=== PATIENT | male | born 1945 | race Caucasian/White ===

== ENCOUNTER → 2016-09-12 15:13 | Outpatient (CLI) | payer MEDICARE, BC ==
[2013-02-13 10:05] VITALS: BMI 31.1
[~2016-09-12 15:13] MED LIST: ACETAMINOPHEN500 M1 PO; BAYER CHEWABLE81 MG PO; CENTRUM SILVER1 TA2 PO; CO Q-10100 MG PO; CRESTOR10 MG PO; EFFIENT10 MG PO; FISH OIL 1,0001 CA1 PO; FLUTICASONE PRO16 GM NS; IMDUR60 MG PO; NITROQUICK0.4 MG SL; PRILOSEC20 MG PO; TRIGLIDE160 MG PO
== END | disposition home or self-care (01) ==
LOC: D.US 15:13
DX: I65.23 Occlusion and stenosis of bilateral carotid arteries (principal)

== ENCOUNTER → 2016-10-03 13:00 | Outpatient (CLI) | payer MEDICARE, BC ==
[2013-02-13 10:05] VITALS: BMI 31.1
[2016-10-04 10:15] LABS: IMMUNOGLOBULIN E 8 IU/mL (0-100)
== END | disposition home or self-care (01) ==
LOC: D.RT 13:00
PROVIDERS: Internal Medicine Pulmonary Disease
DX: J44.9 Chronic obstructive pulmonary disease, unspecified (principal)

== ENCOUNTER → 2017-04-04 07:44 | Outpatient (CLI) | payer MEDICARE, BC ==
[2013-02-13 10:05] VITALS: BMI 31.1
== END | disposition home or self-care (01) ==
LOC: D.US 07:44
DX: N28.1 Cyst of kidney, acquired (principal)

== ENCOUNTER → 2017-04-25 19:36 | Outpatient (CLI) | payer MEDICARE, BC ==
[2013-02-13 10:05] VITALS: BMI 31.1
== END | disposition home or self-care (01) ==
LOC: D.SLEEP 04-20 08:00
DX: G47.36 Sleep related hypoventilation in conditions classified elsewhere (principal); G47.00 Insomnia, unspecified; J44.9 Chronic obstructive pulmonary disease, unspecified

== ENCOUNTER → 2017-05-23 16:37 | Outpatient (CLI) | payer MEDICARE, BC ==
[2013-02-13 10:05] VITALS: BMI 31.1
[~2017-05-23 16:37] MED LIST changes: +CARDIZEM60 MG PO; -IMDUR60 MG PO; +ISOSORBIDE MONO60 M1 PO; +OMEPRAZOLE20 M1 PO; +PROAIR HFA8.5 GM INH; +SINGULAIR10 MG PO; +STIOLTO RESPIMAT4 GM INH
[2017-05-23 18:19] LABS: CHOL - HDL RATIO 3.6 ratio (2.3-4.9); LDL-HDL RATIO 2.4 ratio (1.5-3.5)
[2017-09-17 03:49] VITALS: BMI 32.9
== END | disposition home or self-care (01) ==
LOC: D.LABREF 16:37
PROVIDERS: Internal Medicine Interventional Cardiology
DX: E78.5 Hyperlipidemia, unspecified (principal)

== ENCOUNTER → 2017-05-23 19:29 | Outpatient (CLI) | payer MEDICARE, BC ==
[2013-02-13 10:05] VITALS: BMI 31.1
[2017-09-17 03:49] VITALS: BMI 32.9
== END | disposition home or self-care (01) ==
LOC: D.SLEEP 08:00
DX: G47.36 Sleep related hypoventilation in conditions classified elsewhere (principal); G47.00 Insomnia, unspecified; G47.33 Obstructive sleep apnea (adult) (pediatric); E78.5 Hyperlipidemia, unspecified

== ENCOUNTER 2017-09-16 20:16 | Observation (INO) | payer MEDICARE, BC ==
[~2017-09-16] VITALS: Ht 170.2 cm; Wt 90.7 kg
[2017-09-16] VITALS: BP 151/75
--- NOTE | ~2017-09-16 | OP ---
PATIENT NAME: NASRIN OSULLIVAN MEDICAL RECORD: [id number] :45 LOCATION:D. D.2126 ADMISSION DATE:09/16/17 SURGEON: SARAHI CROFT MD DATE OF OPERATION: 09/17/2017 PROCEDURE: Left heart catheterization, selective coronary angiography, right radial approach. CATHETERS: Albion catheter, radial sheath. The procedure was well tolerated. The patient returned to the joseph. Sheath removed. TR band was placed. FINDINGS: Left ventriculography in the 30-degree ERWIN view: Normal wall motion. Normal systolic function. CORONARY ANATOMY. LEFT MAIN: Left main is free of disease. LAD: The area of previous stenting is widely patent with no evidence of restenosis. No progression of tulalip disease. CIRCUMFLEX: Free of disease. RIGHT CORONARY ARTERY: Totally occluded. Fills extremely well via [id number] collaterals. IMPRESSION: Totally occluded right coronary with excellent [id number] collaterals. Preserved LV systolic function. No progression of tulalip disease. TRANSINT:[id number] Voice Confirmation ID: [id number] DOCUMENT ID: [id number] SARAHI CROFT MD CC: [id number] DICTATION DATE: 09/17/17 1118 PANEL MAKER: 09/17/17 1431 ADM IN [facility] [address] [id number]
--- NOTE | ~2017-09-16 | HEMODYNAMI ---
PATIENT:NASRIN OSULLIVAN MEDICAL RECORD: [id number] : 45 LOCATION:[address] ADMISSION DATE: 09/16/17 Generatedon:09/17/201711:18 Patient name: NASRIN OSULLIVAN Patient #: [id number] SSN: : 1945 Date of study: 09/17/2017 Page: Of Hemodynamic Procedure Report Patient Data Patient Demographics Procedure consent was obtained First Name: NASRIN Gender: Male Last Name: SHI : 1945 [facility] Initial: L Age: 72 year(s) Patient #: [id number] Race: Unknown Additional ID: [id number] Contact details [address]: [address] [place] [address] State: [place] City: [place] Zip code: [address] Past Medical History Allergies Allergen Reaction Date Comments Reported Other allergy 09/17/2017 Morphine Admission Admission Data Admission Date: 09/16/2017 Admission Time: 23:42 Room #: 2126 Lab Results Lab Result Date: 09/17/2017 Lab Result Time: 0:00 Biochemistry Name Units Result Min Max BUN mg/dl 27 --(----)-* 7 18 Creatinine mg/dl 1.3 --(---*)-- 0.6 1.3 CBC Name Units Result Min Max Hemoglobin g/dl 12.3 *-(----)-- 13.5 17.5 Procedure Procedure Types Cath Procedure Diagnostic Procedure [facility] w/Coronaries Procedure Description Procedure Date Procedure Date: 09/17/2017 Procedure Start Time: 11:09 Procedure End Time: 11:17 Procedure Staff Name Function Oseas Ramírez RT Scrub Courtney Aaron RT Monitor Ade Walter RT Monitor oJnah Marinelli MD Performing Physician Vasile España RN Nurse Procedure Data Cath Procedure Fluoroscopy Diagnostic fluoroscopy Total fluoroscopy Time: 1 time: 1 min min Diagnostic fluoroscopy Total fluoroscopy dose: 444 dose: 444 mGy mGy Contrast Material Contrast Material Type Amount (ml) Isovue 300 48 Entry Location Entry Primary Successful Side Size Upsize Upsize Entry Closure Clark ccessful Closure Location (Fr) 1 (Fr) 2 (Fr) Remarks Device Remarks Radial Right 5 Fr Mechanical artery Compression Estimated blood loss: 10 ml Diagnostic catheters Device Type Used For End Catheter Placement DIAGNOSTIC Centerview 110cm 5 Procedure Fr catheter ([id number]) Procedure Complications No complications Procedure Medications Medication Administration Route Dosage Oxygen NC 2 l/min Heparin Flush Bag added to field 2 bags (1000units/500ml NS) 0.9% NaCl I.V. 100 ml/hr Radial Cocktail added to field 1 syringe (Verapomil 2mg/Nitro 400mcg/Heparin 1500units) Fentanyl I.V. 50 mcg Versed I.V. 1 mg Radial Cocktail I.A. 1 syringe (Verapomil 2mg/Nitro 400mcg/Heparin 1500units) Fentanyl I.V. 50 mcg Versed I.V. 1 mg Hemodynamics Rest HGB: 12.3 (g/dl) Heart Rate: 70 (bpm) Pressure Samples Time Site Value (mmHg) Purpose Heart Use Rate(bpm) 11:11 LV 95/7,11 Snapshot 105 11:11 AO 96/60(77) Pullback 84 11:11 LV 90/9,13 Pullback 84 Gradients Valve Time Site 1 Site 2 Mean SEP/DFP Peak To Heart Use (mmHg) (sec/min) Peak Rate (mmHg) (bpm) Aortic 11:11 LV AO 0 84 90/9,13 96/60(77) Calculations Valve P-P Mean Valve Index Valve Source Name Gradient Area Flow (cm2) Aortic 0 0 Snapshots Pre Cath Intra NCS Post Cath Vital Signs Time Heart Resp SPO2 etCO2 NIBP (mmHg) Rhythm Pain Sedation Rate (ipm) (%) (mmHg) Status Level (bpm) 10:52:08 73 16 0 158/94(129) NSR 0 (11) 10(A) , No pain 10:56:51 73 17 100 0 143/69(108) NSR 0 (11) 10(A) , No pain 11:01:29 77 15 93 0 127/70(97) NSR 0 (11) 10(A) , No pain 11:06:06 87 16 95 0 120/72(95) NSR 0 (11) 10(A) , No pain 11:10:44 84 16 94 0 115/66(82) NSR 0 (11) 9(A) , No pain 11:15:23 90 17 92 0 119/73(96) NSR 0 (11) 9(A) , No pain Medications Time Medication Route Dose Verified Delivered Reason Notes Effectiveness by by 10:56:46 Oxygen NC 2 l/min Jonah Burnette Per [facility]. Brenden ledbetter MD 10:56:55 Heparin Flush added 2 bags Jonah Burnette used for Bag to St. Brenden España RN procedure (1000units/500ml field APPIAH NS) 10:57:03 0.9% NaCl I.V. 100 Jonah Burnette Per ml/hr [facility]. Brenden ledbetter MD 10:57:16 Radial Cocktail added 1 Jonah Vasile used for (Verapomil to syringe [facility]. Brenden España learning consultant 2mg/Nitro field APPIAH 400mcg/Heparin 1500units) 11:08:51 Fentanyl I.V. 50 mcg Jonah Burnette for sedation St. Brenden España RN, MD 11:08:57 Versed I.V. 1 mg Jonah Burnette for sedation St. Brenden España RN, MD 11:10:09 Radial Cocktail I.A. 1 Jonah Jonah for (Verapomil syringe [facility] Wilcox vasodilation 2mg/Otto APPIAH MD 400mcg/Heparin 1500units) 11:11:07 Fentanyl I.V. 50 mcg Jonah Lopezy for sedation [facility]. Brenden España RN, MD 11:11:15 Versed I.V. 1 mg Jonah Lopezy for sedation St. Brenden España RN, MD Procedure Log Time Note 10:28:51 Oseas SOLOMON(R) sent for patient. Start room use. 10:33:02 Time tracking: Regular hours 10:33:06 Plan of Care:Hemodynamics will remain stable., Cardiac rhythm will remain stable., Comfort level will be maintained., Respiratory function will remain adequate., Patient/ family verbilizes understanding of procedure., Procedure tolerated without complication., Recovers from procedure without complications.. 10:39:17 Patient received from Med II to CCL 1 Alert and oriented. Tansferred to table in Supine position. 10:39:18 Warm blankets applied, and fatmata hugger turned on for patient comfort. 10:39:19 Correct patient and procedure confirmed by team. 10:39:20 Signed procedure consent form obtained from patient. 10:42:03 H&P Date Dictated: 09/16/2017 Within 30 days and on chart.. 10:42:09 Family in patients room. 10:42:11 Patient NPO since Midnight. 10:42:24 Patient allergic to Other allergyMorphine 10:42:27 Is the patient allergic to Iodine/contrast media? No. 10:42:29 Was the patient premedicated? Yes 10:42:34 Is patient on blood thinner?N/A 10:42:38 Patient diabetic? No. 10:42:43 Snore? Yes 10:42:45 Sleep apnea? No 10:42:56 Airway obstruction? Yes Emphazema 10:43:03 Dentures? No ? 10:43:11 Patient pain scale 0/10 ?. 10:43:23 IV patent on arrival in left hand with 0.9% NaCl at KVO. 10:43:37 IV started by Vasile España RN inleft forearm with a 20 gauge IV catheter with 0.9% NaCl at KVO. 10:43:53 IV right forearm D/C'd due to need to relocate for procedure.. 10:44:18 Lab Result : BUN 27 mg/dl 10:44:18 Lab Result : Creatinine 1.3 mg/dl 10:44:18 Lab Result : Hemoglobin 12.3 g/dl 10:44:23 Lab results completed and on chart. 10:44:27 Right Radial & Right Groin area was prepped with chlora-prep and draped in sterile fashion 10:44:28 Alarms reviewed by R. N. 10:44:29 Sharps counted by scrub and verified by R.N. 10:44:30 Physician paged 10:47:31 ECG and BP/O2 sat monitors applied to patient. 10:49:43 Use device set Radial Dx or PCI 10:49:45 Tegaderm 4 x 4 (1626W) opened to sterile field. 10:49:46 ACIST Manifold (83877) opened to sterile field. 10:49:47 ACIST Hand Control (57007) opened to sterile field. 10:49:48 ACIST Syringe (57143) opened to sterile field. 10:49:48 Medline Cath Pack ([id number]) opened to sterile field. 10:49:49 Bag Decanter (2002S) opened to sterile field. 10:49:49 SHEATH 6FR Slender ([id number]) opened to sterile field. 10:49:50 DIAGNOSTIC WIRE .035 260cm J wire (485573) opened to sterile field. 10:49:50 MBrace Wrist Support ([id number]) opened to sterile field. 10:51:15 Vital chart was started 10:51:16 Baseline sample Acquired. 10:51:20 Rhythm: sinus rhythm 10:51:22 Full Disclosure recording started 10:51:24 Pre-procedure instructions explained to patient. 10:51:25 Pre-op teaching completed and patient verbalized understanding. 10:52:32 IV CATHETER 20g opened to sterile field. 10:56:46 Oxygen 2 l/min NC was administered by Vasile España RN; Per physician; 10:56:55 Heparin Flush Bag (1000units/500ml NS) 2 bags added to field was administered by Vasile España RN; used for procedure; 10:57:03 0.9% NaCl 100 ml/hr I.V. was administered by Vasile España RN; Per physician; 10:57:16 Radial Cocktail (Verapomil 2mg/Nitro 400mcg/Heparin 1500units) 1 syringe added to field was administered by Vasile España RN; used for procedure; 11:01:17 Zero performed for pressure channel P1 11:05:51 Physician arrived 11:05:54 --------ALL STOP TIME OUT------ 11:05:56 Final Timeout: patient, procedure, and site verified with staff and physician. All members of the team are in agreement. 11:05:59 Right Radial & Right Groin site verified by team. 11:06:03 Physical assessment completed. ASA score P 2 - A patient with mild systemic disease as per Jonah Marinelli MD. 11:06:08 Sedation plan: IV Moderate Sedation Medication:Versed, Fentanyl 11:08:28 Procedure started. 11:08:51 Fentanyl 50 mcg I.V. was administered by Vasile España RN; for sedation; ::57 Versed 1 mg I.V. was administered by Vasile España RN; for sedation; 11:09:05 Local anesthetic to right radial artery with Lidocaine 2% by Jonah Marinelli MD.INITIAL ACCESS ONLY 11:09:21 A 5 Fr sheath was inserted into the Right Radial artery 11:10:09 Radial Cocktail (Verapomil 2mg/Nitro 400mcg/Heparin 1500units) 1 syringe I.A. was administered by Jonah Marinelli MD; for vasodilation; 11:10:23 A DIAGNOSTIC Centerview 110cm 5 Fr catheter ([id number]) was advanced over the wire and used for Procedure. 11:10:42 LV angiography performed. 11:11:07 Fentanyl 50 mcg I.V. was administered by Vasile España RN; for sedation; 11:11:15 Versed 1 mg I.V. was administered by Vasile España RN; for sedation; 11:11:33 LV gram done using ERWIN 11:11:41 EF : 55 % 11:11:59 LCA angiography performed. 11:14:37 Right Coronary occluded. Visualized with Left Coronary 11:14:54 TR BAND Standard ([id number]) opened to sterile field. 11:15:12 Catheter removed. 11:15:33 Sheath removed intact; hemostasis achieved with Mechanical Compression to the Right Radial artery. 11:15:35 Procedure ended.(Physican Out) 11:15:46 Fluoroscopy time 01.00 minutes. 11:15:51 Fluoroscopy dose: 444 mGy 11:15:51 Flurop Dose total: 444 11:15:56 Contrast amount:Isovue 300 48ml. 11:15:58 Sharps counted by scrub and verified by R.N. 11:16:07 TR band inflated with 10cc of air. 11:16:18 Post right radial artery:stable 11:16:21 Post Procedure Pulses reassessed and unchanged 11:16:45 Post-procedure physical assessment completed. ASA score P 2 - A patient with mild systemic disease as per Jonah Marinelli MD. 11:16:50 Post procedure rhythm: unchanged. 11:16:53 Estimated blood loss: 10 ml 11:16:56 Post procedure instruction explained to patient.Patient verbalizes understanding. 11:17:06 Procedure and supply charges have been captured, reviewed, submitted and are correct. 11:17:28 Procedure Complication : No complications 11:17:31 Vital chart was stopped 11:17:32 See physician's report for complete and final results. 11:17:34 Report given to Pre/Post Procedure Room. 11:17:40 Patient transfered to [facility] with Bed. 11:17:43 Procedure ended. 11:17:43 Full Disclosure recording stopped 11:17:46 End room use (Document Last) Device Usage Item Name Manufacture Quantity Catalog Hospital Part Current Minima l Lot# / Number Charge Number Stock Stock Serial# Code Tegaderm 4 x 3M 1 1626W [id number] [id number] 191652 5 4 (1626W) ACIST Acist 1 13169 815122 022390 791758 5 Manifold Medical (07925) Systems Inc ACIST Hand Acist 1 21718 626139 447976 586872 5 Control Medical (77757) Systems Inc ACIST Acist 1 78515 960173 188041 866310 20 Syringe Medical (81137) Systems Inc Medline Cath Cardinal 1 [id number] 394813 17747 016718 5 [facility] ([id number]) Bag Decanter Microtek 1 2001S 395964 01570 406810 5 (2001S) Medical Inc. SHEATH 6FR Terumo 1 [id number] 011584 001059 963968 40 Slender ([id number]) DIAGNOSTIC St Papo 1 576774 037001 531063 661230 30 WIRE .035 260cm J wire (802835) MBrace Wrist Advanced 1 140-0250-00 221379 11806 179304 5 Support Vascular ([id number]) Dynamics IV CATHETER B. Farris 1 0994230-75 777797 165442 066821 5 20g DIAGNOSTIC Terumo 1 40-9253 735906 192286 928596 5 Centerview 110cm 5 Fr catheter (788898) TR BAND Terumo 1 [id number] 352758 912174 646079 40 Standard ([id number]) Signature Audit [place] Stage Time Signature Unsigned Intra-Procedure 09/17/2017 Ade Walter 11:18:44 AM RT(R) Signatures Monitor : Courtney Aaron Signature : RT Date : Time : Monitor : Ade Walter Signature : RT Date : Time : [address] [place] [address]
--- NOTE | ~2017-09-16 | CN ---
PATIENT NAME:NASRIN OSULLIVAN MEDICAL RECORD: [id number] : 45 LOCATION:. D.2126 ADMIT DATE: 09/16/17 ACCOUNT: [id number] CONSULTING PHYSICIAN: SARAHI CROFT MD REFERRING PHYSICIAN: EDWINA CRONIN MD DATE OF CONSULTATION: 09/17/2017 HISTORY: A 72-year-old gentleman with known history of coronary artery disease, status post intervention, who has occluded fncp-[id number]-[id number] collaterals. He has been having intermittent jaw pain with exertion, fairly classic for angina. Episode was yesterday. He has also been taking some Aleve and has had some GI distress. We are asked to see him regarding his cardiovascular status. PAST MEDICAL HISTORY: Includes; 1. History of hypertension. 2. Hyperlipidemia. 3. Coronary artery disease as described above. 4. Carotid disease, status post carotid endarterectomy. ALLERGIES: PENICILLIN, ALPRAZOLAM, MORPHINE, HYDROCODONE. MEDICATIONS: Include Effient 10 daily, fenofibrate 160 daily, Imdur 120 daily, Crestor 10 daily, aspirin 81 daily, omeprazole 20 daily. SOCIAL HISTORY: Nonsmoker, nondrinker. He takes care of his ADLs. He does exercise regularly at the [facility]. REVIEW OF SYSTEMS: The patient reports easy bruising but reports no swollen glands. The patient reports no fever, no night sweats, no significant weight gain, no significant weight loss. No significant exercise tolerance. The patient reports no dry eyes, no irritation, no vision change. Patient reports no difficulty hearing and no ear pain. Patient reports no frequent nose bleeds or nose and sinus problems. Patient reports on arm pain on exertion. No shortness of breath while lying down. No history of heart murmur. Patient reports no cough, no wheezing or coughing up blood. Patient reports no abdominal pain, no vomiting. Normal appetite. No diarrhea and not vomiting blood. No nausea and no constipation. Patient reports no incontinence. No difficulty urinating. No hematuria. No increased frequency. Patient reports no muscle aches. No weakness, no arthralgias, no back pain. No swelling of the extremities. Patient reports no abnormal mole, no jaundice, no rashes. Reports no loss of consciousness. No weakness and no numbness. No seizures, dizziness, or headaches. The patient reports no depression, no sleep disturbance, feeling safe in a relationship and no alcohol abuse. Patient reports on fatigue. Reports no runny nose or sinus pressure. No itching, no hives, and no frequent sneezing. PHYSICAL EXAMINATION. GENERAL: Pleasant gentleman, in no acute distress. VITAL SIGNS: 119/76, pulse 60 and regular. HEENT: Normocephalic, atraumatic. NECK: No JVD or bruit. HEART: Regular. LUNGS: Aaron clear. ABDOMEN: Soft, nontender. EXTREMITIES: Pulses 2+ and equal. No edema. CONSULT REPORT [id number] NASRIN OSULLIVAN ECG without acute change. IMPRESSION: Acute coronary syndrome with progressive angina. PLAN: Plan for angiography, intervention based on above. TRANSINT:[id number] Voice Confirmation ID: [id number] DOCUMENT ID: [id number] SARAHI CROFT MD CC: [id number] DICTATION DATE: 09/17/17902 FLASK PUSHER: 09/17/17 1339 ADM IN [facility] [address] [id number]
--- NOTE | ~2017-09-16 | HP ---
PATIENT: NASRIN OSULLIVAN MEDICAL RECORD: [id number] ACCOUNT: [id number] LOCATION:[address] : [birth year] ADMISSION DATE: 09/16/17 HISTORY AND PHYSICAL EXAMINATION REASON FOR ADMISSION: Right jaw pain with exercise. HISTORY OF PRESENT ILLNESS: The patient is a 72-year-old male with previous history of coronary artery disease. He has had a previous LAD and circumflex PTCA several years ago and a normal stress test in July of [address] Bonilla. He was also noted on his previous catheterization to have an occluded RCA. He had been apparently asymptomatic except for some abdominal pain that he attributed to Aleve he was taking for aspirin. He was walking at the yesterday on a treadmill and developed some right jaw discomfort that went into his upper thoracic spine. He stopped exercising and the pain went away within 10 minutes. For that reason, he came to the Emergency Room. He denies any recent other exertional chest pain, marked shortness of breath, or fatigue. Recently diagnosed with SIM and said he has felt better on CPAP. PAST MEDICAL HISTORY: Multivessel CAD with PTCA to LAD and circumflex lesions with occluded RCA, smoking induced COPD, hiatal hernia, obstructive sleep apnea, BPH, hyperlipidemia, hypertension, and osteoarthritis, previous inferior wall myocardial infarction. PAST SURGICAL HISTORY: He had a ventral hernia repair, TURP, ACF, parathyroidectomy, arthroscopic procedure on right shoulder for rotator repair. FAMILY HISTORY: Father at 85, had CAD with CABG at age 60. Mother alive; she has CAD as well. He is a 64-bprq-csrs history smoker, quit in 2000. Does not drink alcohol. He is , is active singing in a choir at [email or web address] [facility]. He is a retired grocer. ALLERGIES: MORPHINE, OXYCODONE, PENICILLIN, VYTORIN, and XANAX. HOME MEDICATIONS: Tramadol 50 mg 1 to 2 q.6 hours p.r.n. arthritis pain, Nucynta 75 mg p.o. b.i.d., Flonase nasal spray daily, Stiolto Respimat 1 puff at bedtime, montelukast 10 mg p.o. at h.s., Isordil ER 60 mg q.12 hours, Crestor 10 mg a day. REVIEW OF SYSTEMS: GENERAL: Denies recent fatigue or weight change or fever. HEENT: No recent visual change, sinus congestion, or sore throat. RESPIRATORY: No SOB or cough. CARDIAC: He had exertional upper back pain and jaw pain yesterday with exercise. Denies anterior chest wall pain or palpitations. GASTROINTESTINAL: He has intermittent dyspepsia. No recent nausea, vomiting, change in stools or blood per rectum. GENITOURINARY: Nocturia once nightly. ENDOCRINE: Denies polyuria, polydipsia, heat or cold intolerance. MUSCULOSKELETAL: He has arthralgias in his knees and hands and lumbar spine, no sciatica. PSYCHIATRIC: Denies depressed mood. PHYSICAL EXAMINATION: VITAL SIGNS: Temperature is 97.9 degrees Fahrenheit orally, pulse 71 and HISTORY AND PHYSICAL [id number] NASRIN OSULLIVAN regular, respirations are 18, blood pressure is 151/75 with a sat 95% on room air. Height is 5 feet 7 inches, weight of 200 pounds, BMI is 32.9. EKG shows sinus rhythm, normal EKG. ASSESSMENT: 1. Exertional jaw and upper back pain suggesting angina. 2. Multivessel CAD with prior PTCA of the LAD, circumflex, and an occluded RCA. 3. Osteoarthritis. 4. SIM. 5. Chronic pain. 6. History of parathyroidectomy for hyperparathyroidism. 7. Hyperlipidemia. 8. 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 PLAN: Serial enzymes currently are negative. H&H is 12 and 39.4 respectively. BUN and creatinine are 27 and 1.3. Cholesterol is 125 with an LDL of 71. I have discussed case with Dr. Marinelli. He is preparing for cardiac catheterization to evaluate his coronaries. TRANSINT:[id number] Voice Confirmation ID: [id number] DOCUMENT ID: [id number] ALLYSON RITTER MD at 1809 CC: [id number] DICTATION DATE: 09/17/17923 FILLER MIXER: 09/18/17 0140 DIS IN 09/17/[address] [id number] [address] [id number]
[~2017-09-16 20:16] MED LIST changes: -CARDIZEM60 MG PO; -OMEPRAZOLE20 M1 PO; -PROAIR HFA8.5 GM INH; -SINGULAIR10 MG PO; -STIOLTO RESPIMAT4 GM INH
[2017-09-16 20:44] LABS: BASOPHILS 1.2 % (0-2); EOSINOPHILS 7.3 % (0-7); HEMATOCRIT 39.4 % (42.0-54.0); HEMOGLOBIN 12.3 g/dL (13.5-17.5); LYMPHOCYTES 29.1 % (15-50); MCH 27.6 pg (26.0-34.0); MCHC 31.2 g/dL (31.0-37.0); MCV 88.3 fL (80.0-100.0); MEAN PLATELET VOLUME 9.4 fL (7.4-10.4); MONOCYTES 7.1 % (2-11); NEUTROPHILS 55.3 % (40-80); PLATELET COUNT 191 10x3/uL (130-400); RBC 4.46 10x6/uL (4.20-6.10); RDW 14.2 % (11.5-14.5); WBC 5.9 10x3/uL (4.8-10.8)
[2017-09-16 20:59] LABS: ALBUMIN 3.3 g/dL (3.4-5.0); ALKALINE PHOSPHATASE 43 U/L (46-116); ALT (SGPT) 21 U/L (10-68); BILIRUBIN - TOTAL 0.16 mg/dL (0.2-1.3); CALC OSMOLALITY 285 mosm/kg (275-300); CALCIUM 8.5 mg/dL (8.5-10.1); CARBON DIOXIDE 29.2 mmol/L (21.0-32.0); CHLORIDE - SERUM 105 mmol/L (98-107); CREATININE - SERUM 1.3 mg/dL (0.6-1.3); GLUCOSE 105 mg/dL (74-106); POTASSIUM - SERUM 4.6 mmol/L (3.5-5.1); PROTEIN - SERUM 6.6 g/dL (6.4-8.2); SODIUM 141 mmol/L (136-145); UREA NITROGEN 27 mg/dL (7-18); eGFR NON AFRICAN AMERICAN 58 mL/min (90-120)
[2017-09-16 21:10] LABS: CHOL - HDL RATIO 3.3 ratio (2.3-4.9); CHOLESTEROL, TOTAL 125 mg/dL (0-200); CKMB 2.4 U/L (0.0-3.6); CREATINE KINASE 149 UL (21-232); HDL CHOLESTEROL 38 mg/dL (32-96); LDL CHOLESTEROL 71 mg/dL (0-100); LDL-HDL RATIO 1.9 ratio (1.5-3.5); TRIGLYCERIDE 84 mg/dL (30-200); TROPONIN-I < 0.017 ng/mL (0.000-0.060)
[2017-09-17] MEDS ORDERED: STIOLTO RESPIMAT4 GM INH (01:35)
[2017-09-17] MEDS ORDERED: PROAIR HFA8.5 GM INH (01:36)
[2017-09-17] MEDS ORDERED: SINGULAIR10 MG PO (01:36)
[2017-09-17 03:49] VITALS: BP 151/75; Ht 170.2 cm; Wt 90.7 kg
[2017-09-17 04:00] VITALS: BP 119/76
[2017-09-17] MEDS ORDERED: OMEPRAZOLE20 M1 PO (13:18)
[2017-09-17] MEDS ORDERED: CARDIZEM60 MG PO (13:19)
== END 2017-09-17 16:29 | disposition home or self-care (01) ==
LOC: D.ER 20:16 → D.M2 23:42 → OBSVTIME 23:42 → D.M2 09-17 16:29
PROVIDERS: Emergency Medicine
DX: I25.10 Atherosclerotic heart disease of native coronary artery without angina pectoris (principal); I25.82 Chronic total occlusion of coronary artery; J44.9 Chronic obstructive pulmonary disease, unspecified; G47.33 Obstructive sleep apnea (adult) (pediatric); N40.0 Benign prostatic hyperplasia without lower urinary tract symptoms; I10 Essential (primary) hypertension; E78.5 Hyperlipidemia, unspecified; G89.29 Other chronic pain

== ENCOUNTER → 2017-10-05 08:03 | Outpatient (CLI) | payer MEDICARE, BC ==
[2017-09-17 03:49] VITALS: BMI 32.9
[~2017-10-05 08:03] MED LIST changes: +CARDIZEM60 MG PO; +OMEPRAZOLE20 M1 PO; +PROAIR HFA8.5 GM INH; +SINGULAIR10 MG PO; +STIOLTO RESPIMAT4 GM INH
== END | disposition home or self-care (01) ==
LOC: D.US 08:03
DX: R10.13 Epigastric pain (principal); K21.9 Gastro-esophageal reflux disease without esophagitis

== ENCOUNTER → 2018-01-01 15:06 | Outpatient (CLI) | payer MEDICARE, BC ==
[2017-09-17 03:49] VITALS: BMI 32.9
== END | disposition home or self-care (01) ==
LOC: D.US 15:06
DX: I65.23 Occlusion and stenosis of bilateral carotid arteries (principal)

== ENCOUNTER → 2018-06-15 11:16 | Outpatient (CLI) | payer MEDICARE, BC ==
[2017-09-17 03:49] VITALS: BMI 32.9
== END | disposition home or self-care (01) ==
LOC: D.RT 11:00
DX: J44.9 Chronic obstructive pulmonary disease, unspecified (principal)

== ENCOUNTER → 2018-08-31 08:14 | Outpatient (CLI) | payer MEDICARE, BC ==
[2017-09-17 03:49] VITALS: BMI 32.9
== END | disposition home or self-care (01) ==
LOC: D.US 08:14
DX: N28.1 Cyst of kidney, acquired (principal); I71.4 Abdominal aortic aneurysm, without rupture

== ENCOUNTER → 2018-10-02 09:42 | Outpatient (CLI) | payer MEDICARE, BC ==
[2017-09-17 03:49] VITALS: BMI 32.9
--- NOTE | 2018-10-09 11:18 | ST ---
PATIENT:NASRIN OSULLIVAN MEDICAL RECORD: [id number] SEX: M LOCATION:[facility] ORDER #: ADMISSION DATE: 10/02/18 AGE OF PATIENT: 73 REFERRING PHYSICIAN: INTERPRETING PHYSICIAN: KIRT AZAR MD DATE OF SERVICE: 10/02/2018 PROCEDURE: Nuclear stress test. INDICATION: Angina, coronary artery disease, hyperlipidemia. He was exercised on standard Lexiscan protocol with 33 mCi of sestamibi injected at peak stress, 10 mCi were used previously for rest images. FINDINGS: Gated SPECT reveals a preserved ejection fraction at 61% with decreased thickening and brightening throughout the inferior segments. SPECT imaging Cardiolite was used as myocardial perfusion agent. There is a fixed perfusion defect inferiorly compatible with previous inferior myocardial infarction, no ongoing ischemia and the remaining segments with homogeneous uptake at rest and stress. OVERALL IMPRESSION: This is an abnormal nuclear stress test only and it it shows a fixed perfusion defect inferiorly. No significant ischemic burden and ejection fraction preserved greater than 60%. Continue medical management of the coronary artery disease and cardiac risk factors. TRANSINT:[id number] Voice Confirmation ID: [id number] DOCUMENT ID: [id number] KIRT AZAR MD at 1118 CC: [id number] DICTATION DATE: 10/02/18 1632 DESK CLERKS SUPERVISOR: 10/03/18 0508 DEP CLI 10/02/[address] [address]
== END | disposition home or self-care (01) ==
LOC: D.HCCARDIO 09:42
DX: I25.119 Atherosclerotic heart disease of native coronary artery with unspecified angina pectoris (principal)

== ENCOUNTER → 2019-04-22 16:42 | Outpatient (CLI) | payer MEDICARE, BC ==
[2017-09-17 03:49] VITALS: BMI 32.9
[2019-04-22 17:31] LABS: LDL-HDL RATIO 1.8 ratio (1.5-3.5)
== END | disposition home or self-care (01) ==
LOC: D.LABREF 16:42
PROVIDERS: ATTEND Internal Medicine Interventional Cardiology
DX: I25.10 Atherosclerotic heart disease of native coronary artery without angina pectoris (principal)

== ENCOUNTER → 2020-02-10 12:49 | Outpatient (CLI) | payer MEDICARE, BC ==
[2017-09-17 03:49] VITALS: BMI 32.9
== END | disposition home or self-care (01) ==
LOC: D.US 12-18 11:00
PROVIDERS: ATTEND Internal Medicine Cardiovascular Disease
DX: I65.23 Occlusion and stenosis of bilateral carotid arteries (principal)

== ENCOUNTER → 2020-02-18 08:43 | Outpatient (CLI) | payer MEDICARE, BC ==
[2017-09-17 03:49] VITALS: BMI 32.9
== END | disposition home or self-care (01) ==
LOC: D.US 08:30
PROVIDERS: ATTEND Family Medicine
DX: Q61.9 Cystic kidney disease, unspecified (principal); I71.4 Abdominal aortic aneurysm, without rupture

== ENCOUNTER → 2020-10-12 11:27 | Outpatient (CLI) | payer MEDICARE, BC ==
[2017-09-17 03:49] VITALS: BMI 32.9
== END | disposition home or self-care (01) ==
LOC: D.HCCARDIO 11:27
PROVIDERS: ATTEND Internal Medicine Cardiovascular Disease
DX: I25.10 Atherosclerotic heart disease of native coronary artery without angina pectoris (principal)

== ENCOUNTER 2020-10-20 11:35 | Day surgery (SDC) | payer MEDICARE, BC ==
[~2020-10-20] VITALS: Ht 170.2 cm; Wt 97.5 kg
--- NOTE | ~2020-10-20 | HEMODYNAMI ---
PATIENT:NASRIN OSULLIVAN MEDICAL RECORD: [id number] : 45 LOCATION:D.CAT ADMISSION DATE: 10/20/20 Generatedon:115:45 Patient name: NASRIN OSULLIVAN Patient #: [id number] SSN: [id number] : 1945 Date of study: 10/20/2020 Page: Of Hemodynamic Procedure Report Patient Data Patient Demographics Procedure consent was obtained First Name: NASRIN Gender: Male Last Name: SHI : 1945 Middle Initial: L Age: 75 year(s) Patient #: [id number] Race: Unknown SSN: [id number] Additional ID: [id number] Contact details [address]: [address] [place] [address] State: [place] City: [place] Zip code: [address] Past Medical History History of disease Date Diagnosis Comments Valvular heart disease Allergies Allergen Reaction Date Comments Reported Other allergy 09/17/2017 Morphine Other allergy 10/20/2020 MORPHINE, PCN Admission Admission Data Admission Date: 10/20/2020 Admission Time: 11:35 Arrival Date: 10/20/2020 Arrival Time: 0:00 Height (in.): 66.93 BSA: 2.09 (m2) Height (cm.): 170 BMI: 33.91 (kg/m2) Weight (lbs.): 216.05 Weight (kg.): 98 Lab Results Lab Result Date: 10/20/2020 Lab Result Time: 0:00 Biochemistry Name Units Result Min Max BUN mg/dl 21 --(----)-* 7 18 Creatinine mg/dl 1.1 --(--*-)-- 0.6 1.3 eGFR ml/min 69 *-(----)-- 90 120 NONAFRICAN CBC Name Units Result Min Max Hematocrit % 45.6 --(-*--)-- 42 54 Hemoglobin g/dl 14.6 --(-*--)-- 13.5 17.5 Procedure Procedure Types Cath Procedure Diagnostic Procedure [facility] w/Coronaries FFR/IVUS FFR Initial Sedation Charges Moderate Sedation 25-39 minutes PCI Procedure Hemochron ACT Test PTCA PTCA Initial Procedure Description Procedure Date Procedure Date: 10/20/2020 Procedure Start Time: 15:01 Procedure End Time: 15:41 Procedure Staff Name Function Jonah Arrieta MD Performing Physician Courtney Aaron RT Monitor Ade Walter RT Scrub Michael Narayanan RN Nurse Procedure Data Cath Procedure Fluoroscopy Diagnostic fluoroscopy Total fluoroscopy Time: 9.5 time: 9.5 min min Diagnostic fluoroscopy Total fluoroscopy dose: dose: 1479 mGy 1479 mGy Contrast Material Contrast Material Type Amount (ml) Isovue 300 80 Entry Location Entry Primary Successful Side Size Upsize Upsize Entry Closure Clark ccessful Closure Location (Fr) 1 (Fr) 2 (Fr) Remarks Device Remarks Radial Right 6 Fr Mechanical artery Short Compression Estimated blood loss: 10 ml Diagnostic catheters Device Type Used For End Catheter Placement DIAGNOSTIC JL 3.5 5Fr Procedure catheter ([id number]) DIAGNOSTIC [place] 110cm 5 Procedure Fr catheter ([id number]) Procedure Complications No complications Procedure Medications Medication Administration Route Dosage 0.9% NaCl I.V. 100 ml/hr Oxygen etCO2 Nasal cannula 2 l/min Heparin Flush Bag added to field 2 bags (1000units/500ml NS) Lidocaine 2% added to field 20 Radial Cocktail added to field 1 syringe (Verapamil 2mg/Nitro 400mcg/Heparin 1500units) Versed I.V. 2 mg Fentanyl I.V. 100 mcg Radial Cocktail I.A. 1 syringe (Verapamil 2mg/Nitro 400mcg/Heparin 1500units) Versed I.V. 1 mg Heparin Bolus I.V. 3000 units Heparin Bolus I.V. 5000 units Integrilin (Bolus I.V. 9 ml 2mg/ml) Integrilin (Bolus wasted 1 ml 2mg/ml) Plavix P.O. 600 mg Hemodynamics Rest BSA: 2.09 (m2) HGB: 14.6 (g/dl) O2 Consumption: Estimated: 251.34 (ml/min) O2 Co nsumption indexed: Estimated:120.26 (ml/min/m) Heart Rate: 84 (bpm) Pressure Samples Time Site Value (mmHg) Purpose Heart Use Rate(bpm) 15:07 LV 90/8,15 Snapshot 95 Snapshots Pre Cath Intra NCS Post Cath Vital Signs Time Heart Resp SPO2 etCO2 NIBP (mmHg) Rhythm Pain Sedation Rate (ipm) (%) (mmHg) Status Level (bpm) 14:37:27 89 17 97 8.3 165/98(125) NSR 0 (11) 10(A) , No pain 14:41:33 94 15 93 0.7 155/87(114) NSR 0 (11) 10(A) , No pain 14:45:45 92 16 93 0.7 145/77(112) NSR 0 (11) 10(A) , No pain 14:49:51 88 15 93 0 144/83(118) NSR 0 (11) 10(A) , No pain 14:53:56 92 16 93 0 150/86(109) NSR 0 (11) 10(A) , No pain 14:58:06 91 18 92 0 137/79(106) NSR 0 (11) 10(A) , No pain 15:02:18 95 15 90 0 110/65(82) NSR 0 (11) 10(A) , No pain 15:06:18 87 16 91 0 124/82(103) NSR 0 (11) 10(A) , No pain 15:11:05 89 17 92 0 116/80(99) NSR 0 (11) 10(A) , No pain 15:15:49 94 17 93 0 149/86(107) NSR 0 (11) 10(A) , No pain 15:20:01 88 18 93 0 143/82(109) NSR 0 (11) 10(A) , No pain 15:24:13 92 17 94 0 140/83(110) NSR 0 (11) 10(A) , No pain 15:28:56 72 18 96 0 155/93(119) NSR 0 (11) 10(A) , No pain 15:33:51 95 16 96 0 175/97(146) NSR 0 (11) 10(A) , No pain 15:37:59 82 16 96 0 159/95(119) NSR 0 (11) 10(A) , No pain Medications Time Medication Route Dose Verified Delivered Reason Not es Effectiveness by by 14:40:43 0.9% NaCl I.V. 100 Michael Michael Per physician ml/hr Lorigan Lorigan RN RN 14:40:53 Oxygen etCO2 2 l/min Michael Michael for low 02 sats Nasal Lornai Narayanan cannula RN RN 14:41:04 Heparin Flush added 2 bags Michael Michael used for Bag to Lorigan Lorigan procedure (1000units/500ml field RN RN NS) 14:41:14 Lidocaine 2% added 20ml Michael Michael for local to vial Lorigan Lorigan anesthetic field RN RN 14:41:38 Radial Cocktail added 1 Michael Michael used for (Verapamil to syringe Lorigan Lorigan procedure 2mg/Nitro field RN RN 400mcg/Heparin 1500units) 15:01:20 Versed I.V. 2 mg Michael Michael for sedation Lady Narayanan RN RN 15:01:29 Fentanyl I.V. 100 mcg Michael Michael for sedation Lady Narayanan RN RN 15:03:52 Radial Cocktail I.A. 1 Michael Jonah for (Verapamil syringe Lorigan Meenakshi vasodilation 2mg/Nitro RN 400mcg/Heparin 1500units) 15:05:18 Versed I.V. 1 mg Michael Michael for sedation Lady Narayanan RN RN 15:26:00 Heparin Bolus I.V. 3,000 Michael Michael for units Lorigan Lornai anticoagulation RN RN 15:34:46 Heparin Bolus I.V. 5000 Michael Michael for units Lorigan Lornai anticoagulation RN RN 15:35:03 Integrilin I.V. 9 ml Michael Michael for (Bolus 2mg/ml) Lady Narayanan antiplatelet RN RN therapy 15:35:15 Integrilin wasted 1 ml Michael Michael to sharp's (Bolus 2mg/ml) Lady Narayanan RN RN 15:35:44 Plavix P.O. 600 mg Michael Michael for aLdy Narayanan antiplatelet RN RN therapy Procedure Log Time Note 14:20:41 Michael Narayanan RN sent for patient. Start room use. 14:22:51 Informed consent obtained and on chart 14:23:18 Procedure Status Elective Heart Cath (OP). 14:23:19 Time tracking: Regular hours (M-F 7:00 - 5:00) 14:23:22 Plan of Care:Hemodynamics will remain stable., Cardiac rhythm will remain stable., Comfort level will be maintained., Respiratory function will remain adequate., Patient/ family verbilizes understanding of procedure., Procedure tolerated without complication., Recovers from procedure without complications.. 14:23:30 H&P Date Dictated: 10/20/2020 Within 30 days and on chart., New H&P dictated by physician.. 14:23:46 Patient allergic to Other allergyMORPHINE, PCN 14::45 Lab Result : BUN 21 mg/dl 14::45 Lab Result : Creatinine 1.1 mg/dl 14::45 Lab Result : eGFR NONAFRICAN 69 ml/min 14::45 Lab Result : Hemoglobin 14.6 g/dl 14::45 Lab Result : Hematocrit 45.6 % 14::45 Patient received from Pre/Post Procedure Room to CCL 2 Alert and oriented. Tansferred to table in Supine position. 14:29:46 Warm blankets applied, and fatmata hugger turned on for patient comfort. 14:29:46 Correct patient and procedure confirmed by team. 14:29:47 ECG and BP/O2 sat monitors applied to patient. 14:36:35 Vital chart was started 14:36:37 Baseline sample Acquired. 14:36:40 Rhythm: sinus rhythm 14:36:41 Full Disclosure recording started 14:36:43 Pre-op teaching completed and patient verbalized understanding. 14:36:43 Pre-procedure instructions explained to patient. 14:36:53 Family unavailable. 14:36:54 Patient NPO since Midnight. 14:36:56 Is the patient allergic to Iodine/contrast media? No. 14:36:58 Is patient on blood thinner?No 14:36:59 Patient diabetic? No. 14:37:01 Previous problem with sedation/anesthesia? No ? 14:37:02 Snore? Yes 14:37:02 Sleep apnea? Yes 14:37:04 Deviated septum? No 14:37:05 Opens mouth fully? Yes 14:37:05 Sticks out tongue? Yes 14:37:10 Airway obstruction? Yes EMPHYSEMA 14:37:15 Dentures? No ? 14:37:18 Pre procedure: right dorsailis pedis pulse 1+ Palpable, but thready & weak; easily obliterated 14:37:20 Modified Edvin's test Ulnar < 7 seconds 14:37:22 Patient pain scale 0/10 ?. 14:37:25 IV patent on arrival in left hand with 0.9% NaCl at [facility]. 14:37:41 Lab results completed and on chart. 14:38:18 Right Radial & Right Groin area was prepped with chlora-prep and draped in sterile fashion 14:38:19 Alarms reviewed by R. N. 14:38:20 Sharps counted by scrub and verified by R.N. 14:40:43 0.9% NaCl 100 ml/hr I.V. was administered by Michael Narayanan RN; Per physician; Verbal order read back and verified. 14:40:53 Oxygen 2 l/min etCO2 Nasal cannula was administered by Michael Narayanan RN; for low 02 sats; Verbal order read back and verified. 14:41:04 Heparin Flush Bag (1000units/500ml NS) 2 bags added to field was administered by Michael Narayanan RN; used for procedure; Verbal order read back and verified. 14:41:14 Lidocaine 2% 20ml vial added to field was administered by Michael Narayanan RN; for local anesthetic; Verbal order read back and verified. 14:41:38 Radial Cocktail (Verapamil 2mg/Nitro 400mcg/Heparin 1500units) 1 syringe added to field was administered by Michael Narayanan RN; used for procedure; Verbal order read back and verified. 14:41:55 Patient Weight : 216.05 lbs 14:41:59 Patient Height : 66.93 inches 14:42:04 Arrival Date: 10/20/2020 12:00:00 AM 14:46:27 Use device set Radial Dx or PCI 14:46:29 ACIST Syringe (27243) opened to sterile field. 14:46:29 Bag Decanter () opened to sterile field. 14:46:30 ACIST Hand Control (76930) opened to sterile field. 14:46:30 ACIST Manifold (70814) opened to sterile field. 14:46:31 Tegaderm 4 x 4 (1626W) opened to sterile field. 14:46:32 Medline Cath Pack ([id number]) opened to sterile field. 14:46:32 MBrace Wrist Support ([id number]) opened to sterile field. 14:46:37 EMERALD Guide Wire (780-338) opened to sterile field. 14:46:38 SHEATH 6FR RAIN ([id number]) opened to sterile field. 14:47:32 Zero performed for pressure channel P1 14:49:08 Stress Test: yes; abnormal INFERIOR 15:00:19 --------ALL STOP TIME OUT------ 15:00:19 Final Timeout: patient, procedure, and site verified with staff and physician. All members of the team are in agreement. 15:00:21 Right Radial & Right Groin site verified by team. 15:00:24 Fire Safety Assessment: A--An alcohol-based skin anteseptic being used preoperatively., C--Open oxygen or nitrous oxide is being used., D--An ESU, laser, or fiber-optic light is being used. 15:00:28 Physical assessment completed. ASA score P 2 - A patient with mild systemic disease as per Jonah Arrieta MD. 15:00:31 2) 60-89 Mildly reduced kidney function, and other findings (as for stage 1) point to kidney disease. 15:00:33 Maximum allowable contrast dose (3.7 X eGFR X 0.75)191 ml. 15:00:36 Sedation plan: IV Moderate Sedation Medication:Versed, Fentanyl 15:01:09 Procedure started. 15:01:20 Versed 2 mg I.V. was administered by Michael Narayanan RN; for sedation; Verbal order read back and verified. 15:01:29 Fentanyl 100 mcg I.V. was administered by Michael Narayanan RN; for sedation; Verbal order read back and verified. 15:01:52 Local anesthetic to right radial artery with Lidocaine 2% by Jonah Arrieta MD.INITIAL ACCESS ONLY 15:02:09 A 6 Fr Short sheath was inserted into the Right Radial artery 15:03:52 Radial Cocktail (Verapamil 2mg/Nitro 400mcg/Heparin 1500units) 1 syringe I.A. was administered by Jonah Arrieta MD; for vasodilation; Verbal order read back and verified. 15:05:10 A DIAGNOSTIC [place] 110cm 5 Fr catheter (066244) was advanced over the wire and used for Procedure. 15:05:18 Versed 1 mg I.V. was administered by Michael Narayanan RN; for sedation; Verbal order read back and verified. 15:05:36 RCA angiography performed. 15:06:55 LV gram done using ERWIN 15:06:57 Injector settings: Ml/sec: 5, Volume: 15, 15:07:09 EF : 55 % 15:07:46 Catheter exchanged over wire. 15:08:01 A DIAGNOSTIC JL 3.5 5Fr catheter ([id number]) was advanced over the wire and used for Procedure. 15:10:25 Catheter exchanged over wire. 15:10:43 UNABLE TO ENGAGE LCA 15:11:15 GUIDE 6FR EBU 3.5 catheter ([id number]) opened to sterile field. 15:11:25 6 Fr EBU 3.5 guide catheter was inserted over the wire 15:12:49 LCA angiography performed. 15:24:37 Zero performed for pressure channel P1 15:25:28 Proceeding to intervention. 15:25:37 Ju[place]gui PressureWire X ([id number]) opened to sterile field. 15:25:40 INFLATOR emocha Mobile HealthixCompak (GP5799) opened to sterile field. 15:26:00 Heparin Bolus 3,000 units I.V. was administered by Michael Narayanan RN; for anticoagulation; Verbal order read back and verified. 15:26:50 Pressure wire advanced. 15:30:06 Wire advanced across lesion. 15:32:17 LAD lesion measured at .87 with IFR 15:32:53 Pre PCI Site: [place] LAD has 80% stenosis. 15:34:46 Heparin Bolus 5000 units I.V. was administered by Michael Narayanan RN; for anticoagulation; Verbal order read back and verified. 15:34:47 Inflate balloon Inflation number: 1 A EUPHORA 4.0 x 15 Balloon ([id number]) was prepped and advanced across the Mid LAD , then inflated to 10 JOANNE for 0:00 (min:sec) . 15:35:03 Integrilin (Bolus 2mg/ml) 9 ml I.V. was administered by Michael Narayanan RN; for antiplatelet therapy; Verbal order read back and verified. 15:35:15 Integrilin (Bolus 2mg/ml) 1 ml wasted was administered by Michael Narayanan RN; to sharp's; Verbal order read back and verified. 15:35:32 Balloon removed over the wire. 15:35:33 Wire removed. 15:35:34 Guide catheter removed. 15:35:37 ZEPHYR REGULAR TR BAND (282843) opened to sterile field. 15:35:44 Plavix 600 mg P.O. was administered by Michael Narayanan RN; for antiplatelet therapy; Verbal order read back and verified. 15:36:07 Procedure ended.(Physican Out) 15:36:24 Sheath removed intact; hemostasis achieved with Mechanical Compression to the Right Radial artery. 15:36:30 Contrast amount:Isovue 300 80ml. 15:36:32 Maximum allowable dose exceeded? No. 15:36:35 Fluoroscopy time 09.50 minutes. 15:36:52 Flurop Dose total: 1479 15:36:52 Fluoroscopy dose: 1479 mGy 15:36:58 Dose Area Product 63538 mGy/cm. 15:37:03 [place] band inflated with 10cc of air. 15:37:05 Insertion/operative site no bleeding no hematoma. 15:37:07 Post-procedure physical assessment completed. ASA score P 2 - A patient with mild systemic disease as per Jonah Arrieta MD. 15:37:10 Post procedure rhythm: sinus rhythm 15:37:12 Estimated blood loss: 10 ml 15:37:13 Post procedure instruction explained to patient.Patient verbalizes understanding. 15:37:14 Patient needs reinforcement of post procedure teaching. 15:38:08 Procedure type changed to Cath procedure, Diagnostic procedure, LHC, [facility] w/Coronaries, FFR/IVUS, FFR Initial, Sedation Charges, Moderate Sedation 25-39 minutes, PCI procedure, Hemochron ACT Test, PTCA, PTCA Initial 15:40:36 Procedure and supply charges have been captured, reviewed, submitted and are correct. 15:40:38 Procedure Complication : No complications 15:40:40 Vital chart was stopped 15:40:42 [facility] Findings: MVD- PCI performed (see procedure note) 15:40:43 Operative report dictated upon procedure completion. 15:40:43 See physician's report for complete and final results. 15:40:45 Report given to Pre/Post Procedure Room. 15:40:47 Patient transfered to Pre/Post Procedure Room with Bed. 15:40:53 ACC-PCI Only Patient was given prescriptions, or instructed by Jonah Arrieta MD to start/continue the following medications upon discharge: Plavix 15:41:03 Procedure ended. 15:41:03 Full Disclosure recording stopped 15:42:21 ACT drawn and resulted at 288 seconds. (normal therapeutic range 180-240 seconds). 15:44:07 End room use (Document Last) 15:44:55 Procedure ended.(Physican Out) Intervention Summary Intervention Notes Time ActionType Lesion and Equipment Action# Pressure Duration Attributes Used 15:34:47 Inflate Mid LAD EUPHORA 1 10 00:00 balloon 4.0 x 15 Balloon ([id number]) Device Usage Item Name Manufacture Quantity Catalog Hospital Part Current Min imal Lot# / Number Charge Number Stock Stock Serial# Code ACIST Acist 1 94878 205539 143886 306343 20 Syringe Medical (84771) Systems Inc Bag Decanter Microtek 1 2001S 532518 57291 956995 5 (2001S) Medical Inc. ACIST Hand Acist 1 51711 423088 849003 422823 5 Control Medical (29596) Systems Inc ACIST Acist 1 81123 304430 909571 859454 5 Manifold Medical (70924) Systems Inc Tegaderm 4 x 3M 1 1626W 265908 509702 814585 5 4 (1626W) Medline Cath Medline 1 [id number] 510084 91706 375619 5 Pack ([id number]) MBrace Wrist Advanced 1 140-0250-00 656195 01317 422573 5 Support Vascular (777910854) Dynamics EMERALD Cardinal 1 502-455 144962 081027 073313 5 Guide Wire Health (502-455) SHEATH 6FR Cardinal 1 2917[address] 970194 3476249 [address] 5 [facility] (6688922) DIAGNOSTIC Cardinal 1 [id number] 582352 099858 836110 5 JL 3.5 5Fr Health catheter (551252O) GUIDE 6FR Medtronic 1 [id number] 510291 10086 478927 3 EBU 3.5 catheter (HQ1DRX66) Jauregui Jauregui 1 Z56280 497706 310853037 59586 5 PressureWire Vascular X (S95865) INFLATOR Merit 1 LO6608 229919 561165 386747 15 [facility] Medical BasixCompak (UE3169) EUPHORA 4.0 Medtronic 1 [id number] 222659 070154 743108 5 [id number] x 15 Balloon ([id number]) ZEPHYR Cardinal 1 742809 129503 3749320 928561 5 REGULAR TR Health BAND (070639) DIAGNOSTIC Terumo 1 90-3996 516105 321604 935131 5 [place] 110cm 5 Fr catheter (976187) Signature Audit [place] Stage Time Signature Unsigned Intra-Procedure 10/20/2020 Courtney Aaron 3:44:18 PM RT(R) Intra-Procedure 10/20/2020 Michael 3:44:55 PM Lady RN Intra-Procedure 10/20/2020 Jonah Hernandez 3:45:26 PM Brenden APPIAH Signatures Performing Physician : Signature : Jonah Arrieta MD Date : Time : Monitor : Courtney Aaron Signature : RT Date : Time : Nurse : Michael Lorigan Signature : RN Date : Time : [address] [address]
--- NOTE | ~2020-10-20 | HP ---
PATIENT: NASRIN OSULLIVAN MEDICAL RECORD: [id number] ACCOUNT: [id number] LOCATION:AKANKSHA : 45 ADMISSION DATE: 10/20/20 PCP: EDWINA CRONIN MD HISTORY AND PHYSICAL EXAMINATION HISTORY OF PRESENT ILLNESS: A 75-year-old gentleman with known history of coronary artery disease, status post intervention of the LAD. He has been having ongoing angina, on a combination of nitrates and beta thien, found to have reversible ischemia. Symptoms continued ongoing and was brought to the lab for angiography, possible intervention. PAST MEDICAL HISTORY: Includes; 1. History of hypertension. 2. Hyperlipidemia. 3. Coronary artery disease. SOCIAL HISTORY: . Unfortunately, his has dementia, has almost full-time care. He is a nonsmoker, nondrinker. PHYSICAL EXAMINATION: GENERAL: Pleasant. No acute distress, appears stated age. HEENT: Normocephalic, atraumatic. NECK: No JVD or carotid bruit. CARDIOVASCULAR: Heart is regular. LUNGS: Good air excursion. ABDOMEN: Soft, nontender. EXTREMITIES: Pulses 2+ and equal. No edema. IMPRESSION: Recurrent angina with positive noninvasive studies about long-acting nitrates and beta blockade. PLAN: Angiography and intervention based on the above. TRANSINT:[id number] Voice Confirmation ID: [id number] DOCUMENT ID: [id number] SARAHI CROFT MD CC: [id number] DICTATION DATE: 10/20/20 155 COMPUTER SYSTEM SPECIALIST: 10/20/20 1604 [facility] [address] [place] [address]
--- NOTE | ~2020-10-20 | OP ---
PATIENT NAME: NASRIN OSULLIVAN MEDICAL RECORD: [id number] :45 LOCATION:D.CAT ADMISSION DATE: SURGEON: SARAHI CROFT MD DATE OF OPERATION: 10/20/2020 PROCEDURES: Catheterization plus IFR wire of the LAD plus BLACK AND WHITE PRINTER OPERATOR to the LAD. CATHETERS: Radial sheath, tiger catheter as well as an EBU guiding catheter. The procedure was well tolerated. The patient returned to joseph. Sheath removed. TR band was placed. FINDINGS: Left ventriculography in 30-degree ERWIN view: Normal wall motion and normal systolic function. CORONARY ANATOMY: Left main: Left main is free of disease. LAD: Has 80% in-stent restenosis confirmed with abnormal IFR wire. Circumflex: Free of disease. Right coronary artery: Totally occluded and fills well via left to right collaterals. DESCRIPTION: Next, using the indwelling EBU wire and after abnormal IFR was confirmed a 4.0 x 15 mm [place] balloon was taken up to 12-14 atmospheres inside the recent LAD 80% restenosis. LAD showed excellent resolution of 80% lesion. No significant residual. DOMENICO flow was 3 throughout the procedure. Heparin and Integrilin were used during the case. Sheath was closed with TR band. TRANSINT:[id number] Voice Confirmation ID: [id number] DOCUMENT ID: [id number] SARAHI CROFT MD CC: [id number] DICTATION DATE: 10/20/20 1548 GRAPE PRUNER: 10/21/20 0033 [facility] [place] 10/20/20 [place] [id number] [place] [id number]
[2020-10-20] MEDS ORDERED: SINGULAIR10 MG PO (11:54)
[2020-10-20] MEDS ORDERED: CRESTOR10 MG PO (11:55)
[2020-10-20] MEDS ORDERED: VENTOLIN HFA [SP8 GM INH (11:55)
[2020-10-20] MEDS ORDERED: ULTRAM50 MG PO (11:56)
[2020-10-20] MEDS ORDERED: ZYRTEC10 MG PO (12:01)
[2020-10-20 12:31] VITALS: BP 158/76; Ht 170.2 cm; Wt 97.5 kg
[2020-10-20 12:34] LABS: BASOPHILS 0.8 % (0-2); EOSINOPHILS 3.6 % (0-7); HEMATOCRIT 45.6 % (42.0-54.0); HEMOGLOBIN 14.6 g/dL (13.5-17.5); IMMATURE GRANULOCYTES 0.2 % (0-5); LYMPHOCYTE ABS# 1.13 10x3/uL (1.32-3.57); LYMPHOCYTES 18.4 % (15-50); MCH 29.2 pg (26.0-34.0); MCV 91.2 fL (80.0-100.0); MEAN PLATELET VOLUME 9.4 fL (7.4-10.4); MONOCYTES 5.4 % (2-11); NEUTROPHILS 71.6 % (40-80); PLATELET COUNT 190 10x3/uL (130-400); RDW 13.4 % (11.5-14.5); WBC 6.1 10x3/uL (4.8-10.8)
[2020-10-20 12:50] LABS: ANION GAP 11.8 mmol/L (8-16); CALCIUM 9.4 mg/dL (8.5-10.1); CARBON DIOXIDE 29.3 mmol/L (21.0-32.0); CHOL - HDL RATIO 3.2 ratio (2.3-4.9); CREATININE - SERUM 1.1 mg/dL (0.6-1.3); LDL-HDL RATIO 1.8 ratio (1.5-3.5); POTASSIUM - SERUM 5.1 mmol/L (3.5-5.1)
--- NOTE | 2020-10-20 15:50 | NUR ---
PT REC'D TO AIRPLANE PILOT RECOVERY ROOM 3 VIA STRETCHER. MONITORS ESTAB. AT BS. SEE POST CATH COOK HELPER VEGETABLE. ALARMS ON AND C/L IN REACH.
--- NOTE | 2020-10-20 16:05 | NUR ---
R WRIST Z BAND SITE C/D/I, NO S/S BLEEDING. R ARM/HAND WARM WITH PALP PULSES AND BRISK CAP REFILL. VSS. ALARMS ON AND C/L IN REACH.
[2020-10-20] MEDS ORDERED: PLAVIX75 MG PO (16:34)
--- NOTE | 2020-10-20 16:35 | NUR ---
R WRIST Z BAND SITE C/D/I, NO S/S BLEEDING OR HEMATOMA. R ARM/HAND WARM WITH PALP PULSES AND BRISK CAP REFILL. VSS. PT DENIES PAIN OR NEEDS. ALARMS ON AND C/L IN REACH.
--- NOTE | 2020-10-20 16:45 | NUR ---
PLAVIX PRESCRIPTION CALLED IN TO [facility] PER PT REQUEST.
--- NOTE | 2020-10-20 16:49 | NUR ---
DR. CROFT IN TO SEE PT. UPDATE GIVEN, SPOKE WITH PT AT LENGTH RE: CARDIAC REHAB AND ALL QUESTIONS ANSWERED.
--- NOTE | 2020-10-20 17:00 | NUR ---
R WRIST Z BAND SITE C/D/I, NO S/S BLEEDING OR HEMATOMA. PULSES PALP. KI FORMAN WITH CARDIAC REHAB IN TO SEE PT.
--- NOTE | 2020-10-20 17:30 | NUR ---
R Z BAND SITE C/D/I, NO S/S OF BLEEDING OR HEMATOMA. PT SITTING UP IN BED. SANDWICH TRAY SERVED. VSS. ALARMS ON AND C/L IN REACH.
--- NOTE | 2020-10-20 18:01 | NUR ---
R WRIST SITE C/D/I, NO S/S BLEEDING OR HEMATOMA. R ARM/HAND WARM WITH PALP PULSES AND BRISK CAP REFILL. PT ATE OF SANDWICH. BEGIN POST OP TEACHING WITH PT AND . VSS. ALARMS ON AND C/L IN REACH.
--- NOTE | 2020-10-20 18:30 | NUR ---
5CC AIR REMOVED FROM Z BAND, NO S/S BLEEDING OR SWELLING. PULSES PALP. PT INSTRUCTED ON S/S TO REPORT TO NURSE. ALARMS ON AND C/L IN REACH.
--- NOTE | 2020-10-20 18:45 | NUR ---
TOTAL 7CC AIR REMOVED FROM Z BAND, NO S/S BLEEDING OR HEMATOMA. PULSES PALP. C/L IN REACH.
--- NOTE | 2020-10-20 18:55 | NUR ---
ALL AIR REMOVED FROM Z BAND, NO S/S BLEEDING OR HEMATOMA. NO S/S BLEEDING OR HEMATOMA. PULSES PALP. PT VOIDED 300CC CLEAR, YELLOW URINE IN URINAL. VSS.
--- NOTE | 2020-10-20 19:17 | NUR ---
ALL DISCHARGE INSTRUCTIONS REVIEWED WITH PT, INCLUDING RESTRICTIONS, MEDS (NEW PLAVIX EDUCATION PROVIDED), AND F/U APPT. PT VERBALIZES UNDERSTANDING.
--- NOTE | 2020-10-20 19:20 | NUR ---
R Z BAND REMOVED, NO S/S BLEEDING OR SWELLING, DSG APPLIED. PIV D/C'D INTACT, DSG APPLIED. PT ALLOWED UP TO GET DRESSED, ASSISTING, THEN TO BR INDEPENDENTLY.
--- NOTE | 2020-10-20 19:25 | NUR ---
PT D/C'D VIA WC, ARM BOARD TO R WRIST AND PT HAS ALL BELONGINGS AND PAPERWORK, TO PRIVATE VEHICLE.
== END 2020-10-20 19:25 | disposition home or self-care (01) ==
LOC: D.CATH 11:35 → EDSTATUS 13:30 → D.CATH 13:30
PROVIDERS: ATTEND Internal Medicine Interventional Cardiology
DX: I25.119 Atherosclerotic heart disease of native coronary artery with unspecified angina pectoris (principal); I10 Essential (primary) hypertension; E78.5 Hyperlipidemia, unspecified

== ENCOUNTER → 2021-02-08 12:13 | Outpatient (CLI) | payer MEDICARE, BC ==
[2020-10-20 12:31] VITALS: BMI 33.7
[~2021-02-08 12:13] MED LIST changes: +PLAVIX75 MG PO; +ULTRAM50 MG PO; +VENTOLIN HFA [SP8 GM INH; +ZYRTEC10 MG PO
[2021-02-08 13:48] LABS: LDL-HDL RATIO 1.8 ratio (1.5-3.5)
== END | disposition home or self-care (01) ==
LOC: D.LABREF 12:13
PROVIDERS: ATTEND Internal Medicine Interventional Cardiology
DX: E78.5 Hyperlipidemia, unspecified (principal)